=== PATIENT | male | born 1945 | race Two or more races ===

== ENCOUNTER 2021-12-10 19:13 | Inpatient (IN) | payer MEDICARE, OTHER ==
[~2021-12-10] VITALS: Ht 167.6 cm; Wt 87.5 kg
[2021-12-10 20:35] LABS: Urine Blood 3+ /uL (Negative)
[2021-12-10 20:44] LABS: Urine Specific Gravity 1.015 (1.001-1.035)
[2021-12-10 20:47] LABS: Urine Bacteria MODERATE /hpf (None Seen)
[2021-12-11 00:54] LABS: BUN/Creatinine Ratio 16.1; Bilirubin, Total 0.4 mg/dL (0.2-1.0); Calcium 9.9 mg/dL (8.5-10.1); INR 1.03 (0.9-1.15); Partial Thromboplastin Time 21.7 sec (23.6-33.0); Potassium 4.2 mmol/L (3.5-5.1); Total Protein 8.1 g/dL (6.4-8.2)
[2021-12-11] MEDS ORDERED: IOHEXOL 300 MG/ML 100ML BOTTLE IJ ONE (01:53)
[2021-12-11] MEDS ORDERED: cefTRIAXone 1GM/50ML D5W 50 ML IV ONE ×2 (05:00→11:45)
[2021-12-11] MEDS ORDERED: LIDOCAINE VISCOUS 2% 15ML UD MT ONE (05:30)
[2021-12-11] MEDS ORDERED: LIDOCAINE 2% JELLY 11ml (GLYDO) UR ONE (05:30)
[2021-12-11 07:11] LABS: Basophils # (auto) 0 10 ^3/uL (0-0.2); Basophils % (auto) 0.4 % (0.0-2.0); Eosinophils # (auto) 0 10 ^3/uL (0-0.8); Eosinophils % (auto) 0.1 % (0.0-7.0); Hematocrit 37.9 % (41.0-53.0); Hemoglobin 12.6 g/dL (13.5-17.5); Lymphocytes # (auto) 1.3 10 ^3/uL (0.4-5.4); Lymphocytes % (auto) 10.8 % (10.0-50.0); Mean Corpuscular Hemoglobin 27.8 pg (28.0-32.0); Mean Corpuscular Hgb Conc. 33.2 g/dL (32.0-36.0); Mean Corpuscular Volume 83.8 fL (80.0-100.0); Monocytes # (auto) 0.8 10 ^3/uL (0-1.3); Monocytes % (auto) 6.6 % (0.0-12.0); Neutrophils # (auto) 9.9 10 ^3/uL (1.6-8.6); Neutrophils % (auto) 82.1 % (37.0-80.0); Nucleated Red Blood Cells % 0.1 %; Red Blood Cells 4.52 10^6/uL (4.5-5.90)
[2021-12-11] MEDS ORDERED: DEXTROSE (50%) 50ML SYRG IV PRN (13:00)
[2021-12-11] MEDS ORDERED: NITROGLYCERIN 0.4 MG SL TAB SL PRN (13:00)
[2021-12-11] MEDS ORDERED: MORPHINE SULFATE INJECTION 2 MG/ML SYRG IV PRN ×2 (13:00→14:00)
[2021-12-11] MEDS ORDERED: DOCUSATE SOD 100 MG CAP PO PRN (14:00)
[2021-12-11] MEDS ORDERED: hydrALAZINE HCL 20 MG/ML VL IV PRN (14:00)
[2021-12-11] MEDS ORDERED: ONDANSETRON HCL 4 MG/2 ML VIAL IV PRN (14:00)
[2021-12-11] MEDS ORDERED: ACETAMINOPHEN 325 MG TAB PO PRN (14:00)
[2021-12-11 15:59] LABS: Magnesium 2.4 mg/dL (1.6-2.6); Phosphorus 3.7 mg/dL (2.5-4.90)
[2021-12-11 16:00] VITALS: BP 117/75
[2021-12-11 16:09] LABS: INR 1.06 (0.9-1.15)
[2021-12-11] MEDS ORDERED: GLIP10TA9 PO (16:46)
[2021-12-11] MEDS ORDERED: SIMV-13 PO (16:46)
[2021-12-11] MEDS ORDERED: ISOS1TAB28 PO (16:46)
[2021-12-11] MEDS ORDERED: METF-371 PO (16:46)
[2021-12-11] MEDS ORDERED: CLON0.2D6 PO (16:46)
[2021-12-11] MEDS ORDERED: TAMS1CAP25 PO (16:46)
[2021-12-11] MEDS ORDERED: AML5T PO (16:46)
[2021-12-11] MEDS ORDERED: INSLANTI SC (16:46)
[2021-12-11] MEDS: ACCU-CHEK COMFORT CURVE STRIP VI SCH ×2 (17:00→22:00)
[2021-12-11] MEDS: InsuLIN REG 1unit/0.01ml Soln (100units/ml) SC SCH ×2 (17:00→22:00)
[2021-12-11 17:33] LABS: Partial Thromboplastin Time 25.4 sec (23.6-33.0)
[2021-12-11] MEDS: TAMSULOSIN HYDROCHLORIDE 0.4 MG CAP PO SCH (18:00)
[2021-12-11 22:00] VITALS: BP 153/77
[2021-12-11] MEDS: ATORVASTATIN 20 MG TAB PO SCH (22:00)
[2021-12-11] MEDS: ISOSORBIDE MONONITRATE 20 MG TAB PO SCH (22:00)
[2021-12-12 05:00] VITALS: BP 152/80
[2021-12-12] MEDS: ACCU-CHEK COMFORT CURVE STRIP VI SCH ×4 (06:22→21:21)
[2021-12-12] MEDS: InsuLIN REG 1unit/0.01ml Soln (100units/ml) SC SCH ×5 (06:23→21:22)
[2021-12-12 08:30] VITALS: BP 179/86
[2021-12-12] MEDS: cefTRIAXone 1GM/50ML D5W 50 ML IV SCH (08:39)
[2021-12-12 09:02] VITALS: BP 179/86
[2021-12-12] MEDS: METOPROLOL SUCCINATE XL 50 MG TAB PO SCH (09:08)
[2021-12-12] MEDS: ISOSORBIDE MONONITRATE 20 MG TAB PO SCH (09:08)
[2021-12-12] MEDS ORDERED: NIFEdipine ER 30 MG TAB PO SCH (10:00)
[2021-12-12 13:00] VITALS: BP 217/101
[2021-12-12] MEDS ORDERED: cloNIDine HCL 0.1 MG TAB PO ONE (15:30)
[2021-12-12] MEDS: TAMSULOSIN HYDROCHLORIDE 0.4 MG CAP PO SCH (17:16)
[2021-12-12 17:20] VITALS: BP 140/73
[2021-12-12] MEDS: ATORVASTATIN 20 MG TAB PO SCH (21:21)
[2021-12-12] MEDS: glipiZIDE 5 MG TAB PO SCH (21:21)
[2021-12-12 21:52] VITALS: BP 99/52
[2021-12-12] MEDS: LOSARTAN POTASSIUM 25 MG TAB PO SCH (21:56)
[2021-12-12] MEDS: cloNIDine HCL 0.1 MG TAB PO SCH (21:56)
[2021-12-12] MEDS ORDERED: metFORMIN HYDROCHLORIDE 850 MG TAB PO SCH (22:00)
[2021-12-13] VITALS (7 sets, daily range): BP systolic 99–150; BP diastolic 49–79
[2021-12-13 05:23] LABS: Basophils # (auto) 0.1 10 ^3/uL (0-0.2); Basophils % (auto) 0.6 % (0.0-2.0); Eosinophils # (auto) 0 10 ^3/uL (0-0.8); Eosinophils % (auto) 0.3 % (0.0-7.0); Hematocrit 23.2 % (41.0-53.0); Lymphocytes # (auto) 2.4 10 ^3/uL (0.4-5.4); Lymphocytes % (auto) 20.3 % (10.0-50.0); Mean Corpuscular Hemoglobin 28.7 pg (28.0-32.0); Mean Corpuscular Hgb Conc. 34.6 g/dL (32.0-36.0); Monocytes # (auto) 1.3 10 ^3/uL (0-1.3); Monocytes % (auto) 10.8 % (0.0-12.0); Neutrophils # (auto) 8.2 10 ^3/uL (1.6-8.6); Red Cell Distribution Width 13.8 % (11.8-14.3)
[2021-12-13 05:38] LABS: Calcium 8.7 mg/dL (8.5-10.1); Potassium 4.1 mmol/L (3.5-5.1)
[2021-12-13 05:40] LABS: BUN/Creatinine Ratio 19.8
[2021-12-13] MEDS: ACCU-CHEK COMFORT CURVE STRIP VI SCH ×4 (05:49→20:53)
[2021-12-13] MEDS: INSULIN LANTUS (GLARGINE) 1 /0.01ml (100units/ml) SC SCH (05:49)
[2021-12-13] MEDS: InsuLIN REG 1unit/0.01ml Soln (100units/ml) SC SCH ×4 (05:50→20:54)
[2021-12-13] MEDS: cloNIDine HCL 0.1 MG TAB PO SCH ×3 (05:50→20:52)
[2021-12-13] MEDS: glipiZIDE 5 MG TAB PO SCH ×2 (09:26→20:53)
[2021-12-13] MEDS: LOSARTAN POTASSIUM 25 MG TAB PO SCH ×2 (09:27→20:53)
[2021-12-13] MEDS: METOPROLOL SUCCINATE XL 50 MG TAB PO SCH (09:28)
[2021-12-13] MEDS: cefTRIAXone 1GM/50ML D5W 50 ML IV SCH (09:34)
[2021-12-13] MEDS: amLODIPine BESYLATE 5 MG TAB PO SCH (09:35)
[2021-12-13] MEDS: ISOSORBIDE MONONITRATE 30 MG PO SCH (10:00)
[2021-12-13] MEDS ORDERED: TAMSULOSIN HYDROCHLORIDE 0.4 MG CAP PO SCH (10:00)
[2021-12-13] MEDS ORDERED: PATIENTS OWN MEDICATION (Simvastatin 40 MG) PO SCH (10:00)
[2021-12-13] MEDS: TAMSULOSIN HYDROCHLORIDE 0.4 MG CAP PO SCH (18:06)
[2021-12-13 18:44] LABS: % Iron Saturation 11.6 % (20-55)
[2021-12-13 19:04] LABS: Ferritin 36.9 ng/mL (10-322)
[2021-12-13 19:05] LABS: Folate (Folic Acid) 15.65 ng/mL (5.38-24)
[2021-12-13] MEDS: ATORVASTATIN 20 MG TAB PO SCH (20:53)
[2021-12-14] VITALS (8 sets, daily range): BP systolic 110–148; BP diastolic 39–82
[2021-12-14] MEDS ORDERED: diphenhdrAMINE HCL 50 MG/1 ML VL IV ONE (00:45)
[2021-12-14] MEDS ORDERED: ACETAMINOPHEN 325 MG TAB PO ONE (00:45)
[2021-12-14] MEDS: cloNIDine HCL 0.1 MG TAB PO SCH ×3 (06:07→22:00)
[2021-12-14] MEDS: InsuLIN REG 1unit/0.01ml Soln (100units/ml) SC SCH ×4 (06:08→21:14)
[2021-12-14] MEDS: ACCU-CHEK COMFORT CURVE STRIP VI SCH ×4 (06:08→22:44)
[2021-12-14] MEDS: INSULIN LANTUS (GLARGINE) 1 /0.01ml (100units/ml) SC SCH (06:09)
[2021-12-14 06:15] LABS: Basophils # (auto) 0 10 ^3/uL (0-0.2); Basophils % (auto) 0.2 % (0.0-2.0); Eosinophils # (auto) 0.1 10 ^3/uL (0-0.8); Eosinophils % (auto) 0.7 % (0.0-7.0); Hematocrit 25.3 % (41.0-53.0); Hemoglobin 8.8 g/dL (13.5-17.5); Lymphocytes # (auto) 2.5 10 ^3/uL (0.4-5.4); Lymphocytes % (auto) 24.3 % (10.0-50.0); Mean Corpuscular Hgb Conc. 34.8 g/dL (32.0-36.0); Mean Corpuscular Volume 83.2 fL (80.0-100.0); Monocytes # (auto) 0.8 10 ^3/uL (0-1.3); Neutrophils % (auto) 66.8 % (37.0-80.0); Nucleated Red Blood Cells % 0.1 %; Red Blood Cells 3.04 10^6/uL (4.5-5.90); Red Cell Distribution Width 13.5 % (11.8-14.3); White Blood Cell 10.5 10^3/uL (4.4-10.8)
[2021-12-14 06:31] LABS: Calcium 8.5 mg/dL (8.5-10.1); Potassium 3.7 mmol/L (3.5-5.1)
[2021-12-14] MEDS ORDERED: CYANOCOBALAMIN (B-12) 1000 MCG/1 ML VIAL IM ONE (08:30)
[2021-12-14] MEDS: LOSARTAN POTASSIUM 25 MG TAB PO SCH ×2 (09:59→22:00)
[2021-12-14] MEDS: cefTRIAXone 1GM/50ML D5W 50 ML IV SCH (09:59)
[2021-12-14] MEDS: METOPROLOL SUCCINATE XL 50 MG TAB PO SCH (10:00)
[2021-12-14] MEDS: amLODIPine BESYLATE 5 MG TAB PO SCH (10:00)
[2021-12-14] MEDS: ISOSORBIDE MONONITRATE 30 MG PO SCH (10:00)
[2021-12-14] MEDS: glipiZIDE 5 MG TAB PO SCH ×2 (11:52→22:45)
[2021-12-14] MEDS: TAMSULOSIN HYDROCHLORIDE 0.4 MG CAP PO SCH (18:10)
[2021-12-14] MEDS: ATORVASTATIN 20 MG TAB PO SCH (22:45)
[2021-12-15] VITALS (7 sets, daily range): BP systolic 106–161; BP diastolic 47–80
[2021-12-15 05:01] LABS: Basophils # (auto) 0.1 10 ^3/uL (0-0.2); Eosinophils # (auto) 0.4 10 ^3/uL (0-0.8); Hemoglobin 8.2 g/dL (13.5-17.5); Monocytes # (auto) 1.2 10 ^3/uL (0-1.3); White Blood Cell 9.7 10^3/uL (4.4-10.8)
[2021-12-15 05:03] LABS: Basophils % (auto) 0.7 % (0.0-2.0); Eosinophils % (auto) 3.8 % (0.0-7.0); Hematocrit 23.2 % (41.0-53.0); Lymphocytes # (auto) 2.2 10 ^3/uL (0.4-5.4); Lymphocytes % (auto) 22.7 % (10.0-50.0); Mean Corpuscular Hemoglobin 29.2 pg (28.0-32.0); Mean Corpuscular Hgb Conc. 35.2 g/dL (32.0-36.0); Mean Corpuscular Volume 82.7 fL (80.0-100.0); Neutrophils # (auto) 5.9 10 ^3/uL (1.6-8.6); Neutrophils % (auto) 60.8 % (37.0-80.0); Red Cell Distribution Width 13.6 % (11.8-14.3)
[2021-12-15 05:33] LABS: BUN/Creatinine Ratio 25.5; Potassium 3.3 mmol/L (3.5-5.1)
[2021-12-15 05:35] LABS: Calcium 8.3 mg/dL (8.5-10.1)
[2021-12-15] MEDS: InsuLIN REG 1unit/0.01ml Soln (100units/ml) SC SCH ×4 (06:17→22:37)
[2021-12-15] MEDS: INSULIN LANTUS (GLARGINE) 1 /0.01ml (100units/ml) SC SCH (06:18)
[2021-12-15] MEDS: ACCU-CHEK COMFORT CURVE STRIP VI SCH ×4 (06:27→22:00)
[2021-12-15] MEDS: cloNIDine HCL 0.1 MG TAB PO SCH ×5 (06:28→22:00)
[2021-12-15] MEDS: cefTRIAXone 1GM/50ML D5W 50 ML IV SCH (09:22)
[2021-12-15] MEDS: LOSARTAN POTASSIUM 25 MG TAB PO SCH ×2 (09:23→22:00)
[2021-12-15] MEDS: METOPROLOL SUCCINATE XL 50 MG TAB PO SCH (09:24)
[2021-12-15] MEDS: glipiZIDE 5 MG TAB PO SCH ×2 (09:24→22:00)
[2021-12-15] MEDS: HYDROcodone-ACET 5/325MG TAB PO PRN (09:25)
[2021-12-15] MEDS: amLODIPine BESYLATE 5 MG TAB PO SCH (09:25)
[2021-12-15] MEDS: ISOSORBIDE MONONITRATE 30 MG PO SCH (10:00)
[2021-12-15] MEDS ORDERED: INSULIN LANTUS (GLARGINE) 1 /0.01ml (100units/ml) SC ONE (17:00)
[2021-12-15] MEDS: TAMSULOSIN HYDROCHLORIDE 0.4 MG CAP PO SCH (17:40)
[2021-12-15] MEDS: ATORVASTATIN 20 MG TAB PO SCH (22:00)
[2021-12-16 05:00] VITALS: BP 149/71
[2021-12-16] MEDS: cloNIDine HCL 0.1 MG TAB PO SCH ×2 (05:51→14:37)
[2021-12-16] MEDS: ACCU-CHEK COMFORT CURVE STRIP VI SCH ×2 (06:49→13:00)
[2021-12-16] MEDS: InsuLIN REG 1unit/0.01ml Soln (100units/ml) SC SCH ×2 (06:56→14:17)
[2021-12-16] MEDS: INSULIN LANTUS (GLARGINE) 1 /0.01ml (100units/ml) SC SCH (06:56)
[2021-12-16 08:00] VITALS: BP 151/70
[2021-12-16] MEDS: ISOSORBIDE MONONITRATE 30 MG PO SCH (10:00)
[2021-12-16] MEDS: cefTRIAXone 1GM/50ML D5W 50 ML IV SCH (10:16)
[2021-12-16] MEDS: amLODIPine BESYLATE 5 MG TAB PO SCH (10:17)
[2021-12-16] MEDS: glipiZIDE 5 MG TAB PO SCH (10:18)
[2021-12-16] MEDS: METOPROLOL SUCCINATE XL 50 MG TAB PO SCH (10:19)
[2021-12-16] MEDS: LOSARTAN POTASSIUM 25 MG TAB PO SCH (10:20)
[2021-12-16 13:00] VITALS: BP 147/64
[2021-12-16] MEDS ORDERED: FERR1TAB36 PO (15:10)
[2021-12-16] MEDS ORDERED: TAM04C PO (15:10)
[2021-12-16] MEDS ORDERED: CYANOCOBALAMIN (B-12) 1000 MCG/1 ML VIAL IM ONE (15:15)
[2021-12-16] MEDS: HYDROcodone-ACET 5/325MG TAB PO PRN (16:03)
[2021-12-16 16:58] VITALS: BP 160/62
[2021-12-16 17:39] VITALS: BP 142/74
== END 2021-12-16 18:36 | disposition home or self-care (01) | DRG 689 ==
LOC: ER 19:20 → OVERFLOW 12-11 12:46 → UNDODISIN 12-11 15:38 → WEST WING 12-11 16:36
PROVIDERS: ADMIT Hospitalist; ATTEND Internal Medicine
PROC: 30233K1 Transfusion of Nonautologous Frozen Plasma into Peripheral Vein, Percutaneous Approach (ICD-10-PCS; principal; 2021-12-11)
DX: N30.01 Acute cystitis with hematuria (principal); N17.0 Acute kidney failure with tubular necrosis; I16.9 Hypertensive crisis, unspecified; I12.9 Hypertensive chronic kidney disease with stage 1 through stage 4 chronic kidney disease, or unspecified chronic kidney disease; N13.8 Other obstructive and reflux uropathy; D64.9 Anemia, unspecified; E11.22 Type 2 diabetes mellitus with diabetic chronic kidney disease; E78.5 Hyperlipidemia, unspecified; F17.210 Nicotine dependence, cigarettes, uncomplicated; I25.9 Chronic ischemic heart disease, unspecified; E11.40 Type 2 diabetes mellitus with diabetic neuropathy, unspecified; Z20.822 Contact with and (suspected) exposure to COVID-19; N40.1 Benign prostatic hyperplasia with lower urinary tract symptoms; N18.31 Chronic kidney disease, stage 3a; N32.89 Other specified disorders of bladder; S50.311A Abrasion of right elbow, initial encounter; W18.39XA Other fall on same level, initial encounter; Y93.01 Activity, walking, marching and hiking; Z79.02 Long term (current) use of antithrombotics/antiplatelets; Z90.79 Acquired absence of other genital organ(s); Z95.1 Presence of aortocoronary bypass graft; Z79.899 Other long term (current) drug therapy; Y92.89 Other specified places as the place of occurrence of the external cause; Y99.8 Other external cause status; Z90.49 Acquired absence of other specified parts of digestive tract; Z79.84 Long term (current) use of oral hypoglycemic drugs
CPT/HCPCS: 36415; 71045; 73070; 74177; 80048; 80053; 81001; 82607; 82728; 82746; 82962; 83036; 83540; 83550; 83615; 83735; 83880; 84100; 85025; 85045; 85379; 85610; 85730; 86850; 86900; 86901; 87040; 93005; 96365; 96366; 97116; 97163; 97530; G0378; J0696; J1815

== ENCOUNTER 2023-02-18 17:44 | Inpatient (IN) | payer MEDICARE, BC ==
[~2023-02-18] VITALS: Ht 165.1 cm; Wt 76.4 kg
[~2023-02-18 17:44] MED LIST: AML5T PO; CLON0.2D6 PO; FERR1TAB36 PO; GLIP10TA9 PO; INSLANTI SC; ISOS1TAB28 PO; METF-371 PO; SIMV40TA18 PO; TAMS-35 PO; TAMS1CAP25 PO
[2023-02-18 18:42] LABS: Eosinophils # (auto) 0 10 ^3/uL (0-0.8); Eosinophils % (auto) 0.3 % (0.0-7.0); Hemoglobin 11.7 g/dL (13.5-17.5); Lymphocytes # (auto) 0.6 10 ^3/uL (0.4-5.4); Monocytes # (auto) 0.2 10 ^3/uL (0-1.3)
[2023-02-18 18:43] LABS: Basophils # (auto) 0 10 ^3/uL (0-0.2); Basophils % (auto) 0.3 % (0.0-2.0); Hematocrit 36.5 % (41.0-53.0); Lymphocytes % (auto) 6.2 % (10.0-50.0); Mean Corpuscular Hemoglobin 23.9 pg (28.0-32.0); Mean Corpuscular Hgb Conc. 32.1 g/dL (32.0-36.0); Mean Corpuscular Volume 74.7 fL (80.0-100.0); Monocytes % (auto) 1.6 % (0.0-12.0); Neutrophils # (auto) 9.3 10 ^3/uL (1.6-8.6); Neutrophils % (auto) 91.6 % (37.0-80.0); Red Blood Cells 4.89 10^6/uL (4.5-5.90); Red Cell Distribution Width 18.2 % (11.8-14.3); White Blood Cell 10.2 10^3/uL (4.4-10.8)
[2023-02-18 19:08] LABS: Albumin 3.8 g/dL (3.4-5.0); Calcium 9.2 mg/dL (8.5-10.1); Potassium 3.7 mmol/L (3.5-5.1)
[2023-02-18 19:10] LABS: Bilirubin, Total 0.5 mg/dL (0.2-1.0); Total Protein 7.3 g/dL (6.4-8.2)
[2023-02-18] MEDS ORDERED: ACETAMINOPHEN 500 MG TAB PO ONE (22:15)
[2023-02-18] MEDS ORDERED: LACTATED RINGER'S 2,000 ML IV ONE (22:15)
[2023-02-18] MEDS ORDERED: KETOROLAC TROMETH 30 MG/ML 1ML VIAL IV ONE (22:15)
[2023-02-18 22:35] LABS: Blood Alcohol < 3.0 mg/dL (<10); Lipase 231 U/L (73-393); Magnesium 1.8 mg/dL (1.6-2.6)
[2023-02-18 23:27] LABS: Lactic Acid w/Reflex 2.7 mmol/L (0.4-2.0)
[2023-02-18 23:44] LABS: Urine Bacteria MANY /hpf (None Seen); Urine Blood TRACE /uL (Negative); Urine Mucus MODERATE (None Seen); Urine Specific Gravity 1.013 (1.001-1.035); Urine WBC 86 /hpf (0 - 3); Urine WBC Clumps PRESENT /hpf (None Seen)
[2023-02-18 23:59] LABS: Alcohol, Urine < 3.0 mg/dL (0-10); Amphetamine Screen, Urine NEGATIVE (NEGATIVE); Barbiturate Scree,Urine NEGATIVE (NEGATIVE); Benzodiazephine Screen, Urine NEGATIVE (NEGATIVE); Cannabinoid Screen, Urine NEGATIVE (NEGATIVE); Cocaine Screen, Urine NEGATIVE (NEGATIVE); Opiate Scree,Urine NEGATIVE (NEGATIVE); Phencyclidine Screen, Urine NEGATIVE (NEGATIVE)
[2023-02-19] MEDS ORDERED: PIPERACILLIN-TAZOB 3.375GM 100 ML IV ONE (01:30)
[2023-02-19] MEDS ORDERED: LACTATED RINGER'S 1,000 ML IV ONE ×2 (01:30)
[2023-02-19] MEDS ORDERED: DEXTROSE (50%) 50ML SYRG IV PRN (03:15)
[2023-02-19] MEDS ORDERED: ACETAMINOPHEN 325 MG TAB PO PRN (03:15)
[2023-02-19] MEDS ORDERED: ONDANSETRON HCL 4 MG/2 ML VIAL IV PRN (03:15)
[2023-02-19] MEDS: cefTRIAXone 1GM/50ML D5W 50 ML IV SCH (04:11)
[2023-02-19] MEDS ORDERED: SODIUM CHLORIDE 0.9% 1,000 ML IV ONE (05:00)
[2023-02-19] MEDS: ACCU-CHEK COMFORT CURVE STRIP VI SCH ×4 (07:00→20:58)
[2023-02-19] MEDS: LOSARTAN POTASSIUM 50 MG TAB PO SCH (07:35)
[2023-02-19] MEDS: PANTOPRAZOLE 40 MG TAB PO SCH (07:35)
[2023-02-19] MEDS: CLOPIDOGREL BISULFATE 75 MG TAB PO SCH (07:35)
[2023-02-19] MEDS: InsuLIN REG 1unit/0.01ml Soln (100units/ml) SC SCH ×4 (07:37→20:59)
[2023-02-19] MEDS ORDERED: HCTZ 25 MG TAB PO SCH (10:00)
[2023-02-19] MEDS: SODIUM CHLORIDE 0.9% 1,000 ML IV SCH (15:05)
[2023-02-19] MEDS: TAMSULOSIN HYDROCHLORIDE 0.4 MG CAP PO SCH (17:34)
[2023-02-19] MEDS: ATORVASTATIN 20 MG TAB PO SCH (21:04)
[2023-02-20] MEDS: cloNIDine HCL 0.1 MG TAB PO PRN ×2 (03:52→17:33)
[2023-02-20 05:00] VITALS: BP 175/73
[2023-02-20] MEDS: SODIUM CHLORIDE 0.9% 1,000 ML IV SCH ×2 (05:32→15:25)
[2023-02-20 05:51] LABS: Basophils # (auto) 0.1 10 ^3/uL (0-0.2); Eosinophils # (auto) 0.1 10 ^3/uL (0-0.8); Lymphocytes # (auto) 1.7 10 ^3/uL (0.4-5.4)
[2023-02-20 05:55] LABS: Basophils % (auto) 0.6 % (0.0-2.0); Hematocrit 35.2 % (41.0-53.0); Hemoglobin 11.6 g/dL (13.5-17.5); Lymphocytes % (auto) 13.4 % (10.0-50.0); Mean Corpuscular Hemoglobin 24.4 pg (28.0-32.0); Mean Corpuscular Hgb Conc. 32.9 g/dL (32.0-36.0); Mean Corpuscular Volume 74.3 fL (80.0-100.0); Monocytes # (auto) 1.4 10 ^3/uL (0-1.3); Monocytes % (auto) 10.8 % (0.0-12.0); Neutrophils # (auto) 9.3 10 ^3/uL (1.6-8.6); Neutrophils % (auto) 74.2 % (37.0-80.0); Red Blood Cells 4.73 10^6/uL (4.5-5.90); Red Cell Distribution Width 18.4 % (11.8-14.3); White Blood Cell 12.6 10^3/uL (4.4-10.8)
[2023-02-20 06:31] LABS: Potassium 3.8 mmol/L (3.5-5.1)
[2023-02-20] MEDS: ACCU-CHEK COMFORT CURVE STRIP VI SCH ×4 (06:32→21:52)
[2023-02-20 06:40] LABS: Albumin 2.9 g/dL (3.4-5.0); Bilirubin, Total 0.3 mg/dL (0.2-1.0); Calcium 8.6 mg/dL (8.5-10.1); Total Protein 6.8 g/dL (6.4-8.2)
[2023-02-20] MEDS: InsuLIN REG 1unit/0.01ml Soln (100units/ml) SC SCH ×4 (06:46→21:44)
[2023-02-20] MEDS: cefTRIAXone 1GM/50ML D5W 50 ML IV SCH (08:21)
[2023-02-20] MEDS: CLOPIDOGREL BISULFATE 75 MG TAB PO SCH (08:22)
[2023-02-20] MEDS: LOSARTAN POTASSIUM 50 MG TAB PO SCH (08:22)
[2023-02-20] MEDS: PANTOPRAZOLE 40 MG TAB PO SCH (08:22)
[2023-02-20 09:00] VITALS: BP 177/74
[2023-02-20] MEDS ORDERED: amLODIPine BESYLATE 5 MG TAB PO ONE (11:15)
[2023-02-20 13:00] VITALS: BP_SYST 141; BP_SYST 156; BP_DIAS 83; BP_DIAS 85
[2023-02-20 16:53] VITALS: BP 172/78
[2023-02-20] MEDS: TAMSULOSIN HYDROCHLORIDE 0.4 MG CAP PO SCH (17:31)
[2023-02-20] MEDS: hydrALAZINE HCL 20 MG/ML VL IV PRN (18:43)
[2023-02-20 20:00] VITALS: BP 135/72
[2023-02-20] MEDS: ATORVASTATIN 20 MG TAB PO SCH (21:36)
[2023-02-21] MEDS: SODIUM CHLORIDE 0.9% 1,000 ML IV SCH (04:35)
[2023-02-21 05:05] VITALS: BP 154/67
[2023-02-21] MEDS: ACCU-CHEK COMFORT CURVE STRIP VI SCH ×4 (06:00→21:36)
[2023-02-21] MEDS: InsuLIN REG 1unit/0.01ml Soln (100units/ml) SC SCH ×4 (06:00→21:35)
[2023-02-21] MEDS: hydrALAZINE HCL 20 MG/ML VL IV PRN (06:20)
[2023-02-21 06:25] LABS: Mean Corpuscular Volume 74.2 fL (80.0-100.0)
[2023-02-21 06:28] LABS: Basophils # (auto) 0.1 10 ^3/uL (0-0.2); Basophils % (auto) 0.8 % (0.0-2.0); Eosinophils # (auto) 0.2 10 ^3/uL (0-0.8); Eosinophils % (auto) 2.2 % (0.0-7.0); Hematocrit 35.2 % (41.0-53.0); Hemoglobin 11.5 g/dL (13.5-17.5); Lymphocytes # (auto) 1.7 10 ^3/uL (0.4-5.4); Lymphocytes % (auto) 23.5 % (10.0-50.0); Mean Corpuscular Hemoglobin 24.2 pg (28.0-32.0); Mean Corpuscular Hgb Conc. 32.6 g/dL (32.0-36.0); Monocytes # (auto) 0.9 10 ^3/uL (0-1.3); Neutrophils # (auto) 4.3 10 ^3/uL (1.6-8.6); Neutrophils % (auto) 60.5 % (37.0-80.0); Red Blood Cells 4.75 10^6/uL (4.5-5.90); Red Cell Distribution Width 18.9 % (11.8-14.3); White Blood Cell 7.2 10^3/uL (4.4-10.8)
[2023-02-21 06:42] LABS: Potassium 3.8 mmol/L (3.5-5.1)
[2023-02-21 06:51] LABS: BUN/Creatinine Ratio 16.7 (10.0-20.0); Calcium 8.8 mg/dL (8.5-10.1)
[2023-02-21] MEDS: amLODIPine BESYLATE 5 MG TAB PO SCH ×2 (08:56→21:31)
[2023-02-21] MEDS: cefTRIAXone 1GM/50ML D5W 50 ML IV SCH (08:56)
[2023-02-21] MEDS: CLOPIDOGREL BISULFATE 75 MG TAB PO SCH (08:56)
[2023-02-21] MEDS: LOSARTAN POTASSIUM 50 MG TAB PO SCH (08:57)
[2023-02-21 09:00] VITALS: BP 162/72
[2023-02-21] MEDS: cloNIDine HCL 0.1 MG TAB PO PRN (11:22)
[2023-02-21] MEDS ORDERED: ISOSORBIDE MONONITRATE ER 60 MG TAB PO ONE (11:30)
[2023-02-21 12:32] VITALS: BP 135/70
[2023-02-21] MEDS: cloNIDine HCL 0.1 MG TAB PO SCH ×2 (14:39→23:41)
[2023-02-21 16:31] VITALS: BP 130/70
[2023-02-21] MEDS: TAMSULOSIN HYDROCHLORIDE 0.4 MG CAP PO SCH (17:05)
[2023-02-21] MEDS: ATORVASTATIN 20 MG TAB PO SCH (21:31)
[2023-02-21 22:00] VITALS: BP_SYST 131; BP_SYST 134; BP_DIAS 81; BP_DIAS 83
[2023-02-21] MEDS ORDERED: INSULIN LANTUS (GLARGINE) 1 /0.01ml (100units/ml) SC SCH (22:00)
[2023-02-22] MEDS: cloNIDine HCL 0.1 MG TAB PO SCH ×3 (00:41→13:48)
[2023-02-22 05:00] VITALS: BP 145/58
[2023-02-22] MEDS: ACCU-CHEK COMFORT CURVE STRIP VI SCH ×3 (06:48→18:02)
[2023-02-22] MEDS: InsuLIN REG 1unit/0.01ml Soln (100units/ml) SC SCH ×3 (06:48→18:01)
[2023-02-22 09:00] VITALS: BP 112/64
[2023-02-22] MEDS: cefTRIAXone 1GM/50ML D5W 50 ML IV SCH (09:40)
[2023-02-22] MEDS: amLODIPine BESYLATE 5 MG TAB PO SCH (09:42)
[2023-02-22] MEDS: CLOPIDOGREL BISULFATE 75 MG TAB PO SCH (09:43)
[2023-02-22] MEDS ORDERED: ISOSORBIDE MONONITRATE ER 60 MG TAB PO SCH (10:00)
[2023-02-22] MEDS ORDERED: CEFD300C2 PO (12:16)
[2023-02-22 13:00] VITALS: BP 128/57
[2023-02-22 17:00] VITALS: BP 168/73
[2023-02-22] MEDS: TAMSULOSIN HYDROCHLORIDE 0.4 MG CAP PO SCH (18:00)
== END 2023-02-22 18:45 | disposition home or self-care (01) | DRG 871 ==
LOC: EDBD 17:44 → ER 17:44 → OVERFLOW 02-19 03:10 → WEST WING 02-19 17:48
PROVIDERS: ADMIT Nurse Practitioner; ATTEND Internal Medicine
DX: A41.9 Sepsis, unspecified organism (principal); N17.0 Acute kidney failure with tubular necrosis; N10 Acute pyelonephritis; N18.9 Chronic kidney disease, unspecified; E86.0 Dehydration; I25.10 Atherosclerotic heart disease of native coronary artery without angina pectoris; Z20.822 Contact with and (suspected) exposure to COVID-19; I16.0 Hypertensive urgency; I12.9 Hypertensive chronic kidney disease with stage 1 through stage 4 chronic kidney disease, or unspecified chronic kidney disease; E11.22 Type 2 diabetes mellitus with diabetic chronic kidney disease; Z95.1 Presence of aortocoronary bypass graft; Z90.49 Acquired absence of other specified parts of digestive tract; N40.1 Benign prostatic hyperplasia with lower urinary tract symptoms
CPT/HCPCS: 36415; 71045; 80048; 80053; 80307; 80320; 81001; 82962; 83036; 83605; 83690; 83735; 85025; 87040; 87086; 87426; 87804; 93005; 96361; 96365; 96367; 97110; 97116; 97163; 97530; G0378; J0696; J1815; J1885; J2543